=== PATIENT | male | born 1950 | race Caucasian/White ===

== ENCOUNTER 2017-05-09 15:57 | Emergency (ER) | payer SELFPAY ==
[~2017-05-09] VITALS: Ht 170.2 cm; Wt 77.0 kg
[2017-05-09 19:37] VITALS: BP 134/87
== END 2017-05-09 19:38 | disposition home or self-care (01) ==
LOC: EMS 15:59
DX: S61.411A Laceration without foreign body of right hand, initial encounter (principal); W25.XXXA Contact with sharp glass, initial encounter; Y93.89 Activity, other specified; Y92.89 Other specified places as the place of occurrence of the external cause; Y99.8 Other external cause status
CPT/HCPCS: 99284